=== PATIENT | female | born 2000 | race Caucasian/White ===

== ENCOUNTER 2022-03-23 08:35 | Outpatient (REF) | payer OTHER, SELFPAY ==
[2022-03-23 12:20] LABS: HBS Num1 0.09 mIU/mL (0-7.99); ~Hepatitis B Surface Antibody NONREACTIVE (Nonreactive)
[2022-03-23 12:21] LABS: Cholesterol 134 mg/dL; Glucose Fasting 92 mg/dL (60-99); HDL Cholesterol 60 mg/dL; LDL Cholesterol Calculated 54 mg/dl; Triglycerides 100 mg/dL
[2022-03-24 21:41] LABS: Rubella IgG Antibody <0.90 Index
[2022-03-28 13:57] LABS: TS Negative Control Passed; TS Panel A 3; TS Panel B 0; TS Positive Control Passed; TSpotTB Negative (Negative)
== END 2022-03-23 08:36 | disposition home or self-care (01) ==
LOC: HO.HMGCLDS 08:35
PROVIDERS: Visit Provider Internal Medicine
DX: Z00.00 Encounter for general adult medical examination without abnormal findings (principal); Z11.1 Encounter for screening for respiratory tuberculosis; Z01.84 Encounter for antibody response examination
CPT/HCPCS: 36415; 80061; 82947; 86481; 86706; 86735; 86762; 86765

== ENCOUNTER 2022-05-10 07:06 | Outpatient (REF) | payer OTHER, SELFPAY ==
[2022-05-10 12:09] LABS: HBc Num1 0.08 S/CO (0.00-0.79); HBsAGNum1 0.16 S/CO (0.00-0.99); Hepatitis B Core Antibody Nonreactive (Nonreactive); Hepatitis B Surface Antigen Negative (Negative); ~Hepatitis B Surface Antibody REACTIVE (Nonreactive)
== END 2022-05-10 07:07 | disposition home or self-care (01) ==
LOC: HO.HMGCLDS 07:06
PROVIDERS: PCP Internal Medicine; Visit Provider Internal Medicine
DX: Z01.84 Encounter for antibody response examination (principal); Z78.9 Other specified health status
CPT/HCPCS: 36415; 86704; 86706; 87340

== ENCOUNTER 2025-01-28 11:55 | Outpatient (REF) | payer OTHER, SELFPAY ==
--- OUTSIDE RECORDS SUMMARY | 2025-01-28 13:15 | XMS_ITS | Encounter Summary ---
Author Organization [facility] Address [address] [place] [phone] Phone Care Team Providers Care Election Judge Name Role Phone More Christina MD Primary Care Prov ider Encounter Details Date Type Department Care Team (Late st Contact Info) Description 11/22/2017 Conversion Encounter [facility] [address] [phone] More Almonte MD [address] [address] Social History Tobacco Use Types Packs/Day Years Used Date Smoking Tobacco: Never Comments:Never Comments Unknown Sex and Gender Information Value Date Recorded Sex Assigned at Not on file Legal Sex Female 12:18 PM EST Gender Identity Not on file Sexual Orientation Not on file documented as of this encounter Plan of Treatment Not on file documented as of this encounter Visit Diagnoses Not on filedocumented in this encounter Care Teams Election Judge Relationship Specialty Start Date End Date More Christina MD [address] [address] PCP - General 01/03/16 documented as of this encounter
--- OUTSIDE RECORDS SUMMARY | 2025-01-28 13:15 | XMS_ITS | Referral Summary ---
Author Organization [facility] Address [address] [place] [address] Care Team Providers Care Workforce Planner Name Role Phone Ashleigh Van MD Primary Care Provider Allergies No known active allergies Medications methylphenidate ER (Concerta) 18 mg tablet Take 1 tablet (18 mg total) by mouth every morning. 10 tablet 12/25/2024 3:51 PM EDT 12/25/2024 Active methylphenidate HCl (RITALIN) 20 mg tablet Take 1 tablet (20 mg total) by mouth 3 times a day as needed, as directed. 90 tablet 01/23/2025 6:11 PM EDT 12/31/2024 Active Immunizations Immunization Administration Dates Next Due Covid-19, Pfizer, mRNA, [place] valent, PF 30 mcg/0.3 mL dose (for ages 12 and older) 03/31/2022,01/17/2021 Hep B, Unspecified 03/31/2022 Hepatitis B adult (ENGERIX-B /RECOMBIVAX HB ADULT) vaccine 1 mL IM 03/22/2001,2000,2000 Influenza trivalent, PF MDCK (FLUCELVAX) vaccine 0.5 mL IM (for age 6 mo and older) 09/02/2024 Influenza, Injectable, Quadr ivalent, Preservative Free 07/20/2023,09/22/2022 Measles, Mumps, and Rubella Vaccine 06/28/2004,0 09/25/2001 Tetanus Toxoid, Reduced Diph theria Toxoid, and Acellular Pertussis Vaccine, Adsorbed 03/21/2022,03/07/2012 Varicella Virus Vaccine 03/07/2012,06/26/2001 Social History Tobacco Use Types Packs/Day Years Used Date Smoking Tobacco: Never Assessed Comments No Sex and Gender Information Value Date Recorded Sex Assigned at Female 07/12/2023 8:23 PM EDT Legal Sex Female 1:35 PM EDT Gender Identity Female 07/12/2023 8:23 PM EDT Sexual Orientation Not on file Last Filed Vital Signs Vital Sign Reading Time Taken Comments Blood Pressure 109/72 07/13/2023 10:18 AM EDT Pulse 78 07/13/2023 10:18 AM EDT Temperature 36.7 ??C (98.1 ??F) 07/13/2023 6:18 AM ED T Respiratory Rate 16 07/13/2023 10:18 AM EDT Oxygen Saturation 98% 07/13/2023 10:18 AM EDT Inhaled Oxygen Concentration - - Weight - - Height - - Body Mass Index - - Plan of Treatment Not on file Insurance [employer] Care Teams Workforce Planner Relationship Specialty Start Date End Date Ashleigh Van MD [address] [place], [place] [phone] PCP - General Internal Medicine 07/11/23
--- OUTSIDE RECORDS SUMMARY | 2025-01-28 13:15 | XMS_ITS | Clinical Summary ---
Author Organization [facility] Address [address] [place] [address] Care Team Providers Care Principal Programmer Name Role Phone Ashleigh Van MD Primary [...] Administration Dates Next Due Covid-19, Pfizer, mRNA, [place] valent, PF 30 mcg/0.3 mL dose (for [...] Mass Index - - Plan of Treatment Health Maintenance Due Date Last Done Comments HIV Screening 2000 Hepatitis C Screening 2000 Pap Smear 2000 HPV Vaccines (1 - 3-dose series) 2015 Chlamydia Screening 2016 COVID-19 Vaccine ( - 2023-2 5 season) 2024 03/31/2022, 01/17/2021 Alcohol/Substance Use Screening 09/24/2024 Depression Screening and Follow-Up 09/24/2024 Social Drivers of Health Debra ual Screening 09/24/2024 DTaP,Tdap,and Td Vaccines (8 - Td or Tdap) 03/21/2032 03/21/2022, 03/07/2012, 06/28/2004, Additional history exists RSV Vaccine (60+ years old a nd patients) (1 - 1-dose 75+ series) 2075 Pneumococcal Vaccine: Pediat hadley (0-5 Years) and At-Risk Patients (6-50 Years) Completed 09/25/2001, 03/22/2001, 2000, Additional history exists Varicella Vaccines Completed 03/07/2012, 06/26/2001 Hepatitis B Vaccines Completed 03/31/2022, 03/22/2001, 2000, Additional history exists [facility] Student Health-MMR Vaccines Completed 04/14/2022, 06/28/2004, 09/25/2001 Influenza Vaccine Completed 09/02/2024, , 09/22/2022, Additional history exists Insurance [employer] Care Teams Principal Programmer Relationship Specialty Start Date End Date Ashleigh Van MD [address] [place], [place] [phone] PCP - General Internal Medicine 07/11/23
--- OUTSIDE RECORDS SUMMARY | 2025-01-28 13:16 | XMS_ITS | Encounter Summary ---
Author Organization [facility] Address [address] [place] [address] Care Team Providers Care Back Feeder Plywood Layup Line Name Role Phone Ashleigh Van MD Primary Care Provider Encounter Details Date Type Department Care Team (Late st Contact Info) Description 04/27/2022 External Result Entry [facility] and [address] [address] System Engineer: Sondra Mayfield, RN [place], [place] Social History Tobacco Use Types Packs/Day Years Used Date Smoking Tobacco: Never Assessed Comments Unknown Sex and Gender Information Value Date Recorded Sex Assigned at Female 07/12/2023 8:23 PM EDT Legal Sex Female 1:35 PM EDT Gender Identity Female 07/12/2023 8:23 PM EDT Sexual Orientation Not on file documented as of this encounter Plan of Treatment Not on file documented as of this encounter Procedures * Due to [place] state law, this organization might not be sharing negative HIV tests. Procedure Name Priority Date/Time Associated Diagnosis Comments HEP B SURFACE ANTIBODY, OUTSIDE LAB Routine 05/10/2022 HEP B CORE TOTAL ANTIBODY, OUTSIDE LAB Routine 05/10/2022 HEPATITIS B SURFACE ANTIGEN W/CONFIRMATION, OUTSIDE LAB Routine 05/10/2022 MUMPS ANTIBODY IGG, OUTSIDE LAB Routine 03/23/2022 MEASLES ANTIBODY (IGG), OUTSIDE LAB Routine 03/23/2022 HEP B SURFACE ANTIBODY, OUTSIDE LAB Routine 03/23/2022 RUBELLA ANTIBODY, IGG, OUTSIDE LAB Routine 03/23/2022 T-SPOT, OUTSIDE LAB Routine 03/23/2022 documented in this encounter Results * Due to [place] state law, this organization might not be sharing negative HIV tests. * Hep B Surface Antibody, Outside Lab (05/10/2022) Hep B Surface Antibody pos Blood 05/10/2022 us Unknown Provider LAB BLOOD ORDERABLES Final R esult * Hep B Core Total Antibody, Outside Lab (05/10/2022) Hep B Core Total AB neg Blood 05/10/2022 us Unknown Provider LAB BLOOD ORDERABLES Final R esult * Hepatitis B Surface Antigen w/Confirmation, Outside Lab (05/10/2022) Hepatitis B Surface Antigen neg Blood Structure of peripheral vein / Unknown 05/10/2022 us Unknown Provider LAB BLOOD ORDERABLES Final R esult * Hep B Surface Antibody, Outside Lab (03/23/2022) Hep B Surface Antibody neg Blood 03/23/2022 us Unknown Provider LAB BLOOD ORDERABLES Final R esult * Rubella Antibody, IgG, Outside Lab (03/23/2022) Rubella Antibody, IgG neg Blood Structure of peripheral vein / Unknown 03/23/2022 us Unknown Provider LAB BLOOD ORDERABLES Final R esult * Mumps Antibody IgG, Outside Lab (03/23/2022) Mumps Antibody IgG pos Blood 03/23/2022 us Unknown Provider LAB BLOOD ORDERABLES Final R esult * Measles Antibody (IGG), Outside Lab (03/23/2022) Measles Antibody (IgG) pos Blood 03/23/2022 us Unknown Provider MD LAB BLOOD ORDERABLES Final R esult * T-Spot, Outside Lab (03/23/2022) T-Spot (TB Skin Test) neg Blood Structure of peripheral vein / Unknown 03/23/2022 us Unknown Provider LAB BLOOD ORDERABLES Final R esult documented in this encounter Visit Diagnoses Not on filedocumented in this encounter Additional Health Concerns Infection Onset Date Last Indicated Resolved Time R/O Respiratory Virus Infection 07/12/2023 07/12/2023 9:36 PM EDT R/O Influenza 07/12/2023 07/12/2023 07/12/2023 9:3 6 PM EDT COVID-19 - Suspected infection 07/12/2023 07/12/2023 07/12/2023 9:36 PM EDT documented as of this encounter Care Teams Back Feeder Plywood Layup Line Relationship Specialty Start Date End Date Ashleigh Van MD [address] [place] [address] PCP - General Internal Medicine 07/11/23 documented as of this encounter
--- OUTSIDE RECORDS SUMMARY | 2025-01-28 13:16 | XMS_ITS | Clinical Summary ---
Author Organization [facility] Address [address] [place] [phone] Phone Care Team Providers Care Shoe Associate Name Role Phone More Christina MD Primary Care Prov ider Allergies No known active allergies Medications No known medications Active Problems Problem Noted Date Diagnosed Date Allergic rhinitis 04/16/2018 Abnormal vision 04/16/2018 Overview (04/16/2018): SPOT vision fail bilat anisometropia; referred to opthal of pt's choice Parent refuses immunizations 04/16/2018 Overview (04/16/2018): Per Dr. Gastelum; pt's mother is a PCP physician and hx refusing Gardasil, Hep A and Menactra Resolved Problems Problem Noted Date Diagnosed Date Resolved Date Environmental allergies 04/16/201803/25 Immunizations Immunization Administration Dates Next Due DTaP 06/28/2004, 2,2000, 001,2000 HPV Vaccine 9 Valent 04/16/2018(Deferred: Parent al decision) Hep A, ped/adol 04/16/2018(Deferred: Parental de cision) Hep B, ped/adol 03/22/2001,2000,2000 Hib (PRP-T) 09/25/2001, 1,2000, 000 IPV 06/28/2004, 2,2000, 000 Influenza, intranasal, trivalent 07/11/2007,11/0 10/2005 MMR 06/28/2004,09/25/2001 Meningococcal Conj (Menactra) MCV4P 04/16/2018(D eferred: Parental decision) Pneumococcal Conjugate 09/25/2001,2000,2000, 001 Tdap 03/07/2012 Varicella 03/07/2012,06/26/2001 Family History Relation Name Status Comments Father Tuberculosis No te: PPD+, neg cxr Maternal Grandmother Migrain e Other 1 Unspecified Rel ation: Hodgkin's disease (clinical) Other 2 Unspecified Rel ation: Leukemia Other 3 Unspecified Rel ation: Unspecified Relation: Hodgkin's disease (clinical), Leukemia Paternal Grandmother Diabete s mellitus, Hypertensive disorder Social History Tobacco Use Types Packs/Day Years Used Date Smoking Tobacco: Never Comments:Never Comments Unknown Sex and Gender Information Value Date Recorded Sex Assigned at Not on file Legal Sex Female 12:18 PM EST Gender Identity Not on file Sexual Orientation Not on file Last Filed Vital Signs Vital Sign Reading Time Taken Comments Blood Pressure 100/67 04/16/2018 9:48 AM EDT Pulse 91 04/16/2018 9:48 AM EDT Temperature 36.8 ??C (98.3 ??F) 04/16/2018 9:48 AM ED T Respiratory Rate - - Oxygen Saturation - - Inhaled Oxygen Concentration - - Weight 58.5 kg (129 lb) 04/16/2018 9:48 AM EDT Height 172.7 cm (5' 8 ) 04/16/2018 9:48 AM EDT Body Mass Index 19.61 04/16/2018 9:48 AM EDT Plan of Treatment Health Maintenance Due Date Last Done Comments HPV Vaccines (1 - 3-dose series) 2015 DTaP,Tdap,and Td Vaccines (7 - Td or Tdap) 03/07/2022 03/07/2012, 06/28/2004, 12/30/2001, Additional history exists Influenza Vaccines (#1) 2024 07/11/2007, 07/26 COVID-19 Vaccine ( - season) 2024 Hepatitis B Vaccines Completed 03/22/2001, 2000, 2000 HIB Vaccines Completed 09/25/2001, 12/2000, 2000, Additional history exists Pneumococcal Vaccine Completed 09/25/2001, 03/22/2001, 2000, Additional history exists IPV Vaccines Completed 06/28/2004, 04/2002, 2000, Additional history exists MMR Vaccines Completed 06/28/2004, 09/25/2001 Varicella Vaccines Completed 03/07/2012, 06/26/2001 Hepatitis A Vaccines Aged Out No long er eligible based on patient's age to complete this topic Men B Vaccine Aged Out No longer elig ible based on patient's age to complete this topic Meningococcal Vaccine Aged Out No deepika vesna eligible based on patient's age to complete this topic Procedures * Due to [facility] law, this organization might not be sharing sensitive test results. Procedure Name Priority Date/Time Associated Diagnosis Comments CHLAMYDIA TRACHOMATIS, AMPLIFIED Routine 04/16/2018 1:08 PM EDT Encounter for well child visit with abnormal findings from Last 3 Months or Most Recently Relevant to Health Maintenance Results * Due to [facility] law, this organization might not be sharing sensitive test results. * Chlamydia trachomatis, Amplified (04/16/2018 1:08 PM EDT) Chlamydia Trachomatis, Amplified NEGATIVE NEGATIVE [facility] Comment:Administratively cor rected per TONY ticket??[id number] 04/16/2018 1:08 PM EDT 04/16/2018 2:51 PM EDT Narrative [facility] - 04/17/2018 1:50 PM EDT ML - [facility] [address] [facility] [id number] us [place] FAMILY WORKER LAB BLOOD ORDERABLES Final Resul t [facility] from Last 3 Months or Most Recently Relevant to Health Maintenance Insurance [employer] PPO Care Teams Shoe Associate Relationship Specialty Start Date End Date More Christina MD [address] [place] [address] PCP - General 01/03/16
[2025-01-30 22:47] LABS: TS Negative Control Passed; TS Panel A 0; TS Panel B 1; TS Positive Control Passed; TSpotTB Negative (Negative)
== END 2025-01-28 11:56 | disposition home or self-care (01) ==
LOC: HO.HMGCLDS 11:55
PROVIDERS: PCP Internal Medicine; Visit Provider Internal Medicine
DX: Z00.00 Encounter for general adult medical examination without abnormal findings (principal)
CPT/HCPCS: 36415; 86481

== ENCOUNTER 2025-03-09 10:03 | Outpatient (REF) | payer OTHER, SELFPAY ==
--- OUTSIDE RECORDS SUMMARY | 2025-03-09 11:09 | XMS_ITS | Encounter Summary ---
Author Organization [facility] Address [address] [place] [phone] Phone Care Team Providers Care Activities Counselor Name Role Phone More Christina MD Primary Care Prov ider Encounter Details Date Type Department Care Team (Late st Contact Info) Description 11/22/2017 Conversion Encounter [facility] [address] [phone] More Almonte MD [address] [address] Social History Tobacco Use Types Packs/Day Years [...] on filedocumented in this encounter Care Teams Activities Counselor Relationship Specialty Start Date End Date More Christina MD [address] [address] PCP - General 01/03/16 documented as of this encounter
[2025-03-09 11:47] LABS: Amphetamine Screen Urine Not Detected (Not Detect); Barbiturates, Urine Not Detected (Not Detect); Benzodiazepines Screen Urine Not Detected (Not Detect); Buprenorphine Scr Not Detected (Not Detect); Cannabinoid Screen Urine Not Detected (Not Detect); Cocaine Screen Urine Not Detected (Not Detect); Fentanyl, urine Not Detected (Not Detect); Methadone Screen, Urine Not Detected (Not Detect); Opiate Screen Urine Not Detected (Not Detect); Oxycodone Screen Urine Not Detected (Not Detect); Phencyclidine Screen Urine Not Detected (Not Detect)
== END 2025-03-09 10:04 | disposition home or self-care (01) ==
LOC: HO.LAB 10:03
PROVIDERS: Internal Medicine; PCP Internal Medicine; Visit Provider Internal Medicine
DX: Z00.00 Encounter for general adult medical examination without abnormal findings (principal)
CPT/HCPCS: 80307

== ENCOUNTER 2025-05-04 07:00 | Outpatient (REF) | payer OTHER, SELFPAY ==
--- OUTSIDE RECORDS SUMMARY | 2025-05-04 07:02 | XMS_ITS | Referral Summary ---
Author Organization [facility] Address [address] [place] [address] Care Team Providers Care Route Jumper Name Role Phone Ashleigh Van MD Primary Care Provider Encounters Date Type Department Care Team Description 02/02/2025 External Result Entry [facility] [address] [place] [phone] Travel Med Surg Rn: Sondra Mayfield RN from Last 3 Months Allergies No known active allergies Medications methylphenidate [...] Administration Dates Next Due Covid-19, Pfizer, mRNA, [place] valent, PF 30 mcg/0.3 mL dose (for [...] 78 07/13/2023 10:18 AM EDT Temperature 36.7 C (98.1 F) 07/13/2023 6:18 AM EDT Respiratory Rate 16 07/13/2023 10:18 AM EDT Oxygen Saturation 98% 07/13/2023 10:18 AM EDT Inhaled Oxygen Concentration - - Weight - - Height - - Body Mass Index - - Plan of Treatment Upcoming Encounters Date Type Department Care Team (Late st Contact Info) Description 12/21/2025 8:45 AM EDT Office Visit [facility] [address] [place] [phone] Koki Madera DO [address] [place] [phone] Insurance [employer] Care Teams Route Jumper Relationship Specialty Start Date End Date Ashleigh Van MD [facility] [place] [address] PCP - General Internal Medicine 07/11/23
[2025-05-04 10:45] LABS: ~HepC Num1 0.09 S/CO (0.00-0.79); ~Hepatitis C Antibody Nonreactive (Nonreactive)
== END 2025-05-04 07:01 | disposition home or self-care (01) ==
LOC: HO.HMGCLDS 07:00
PROVIDERS: PCP Internal Medicine; Visit Provider Internal Medicine
DX: Z00.00 Encounter for general adult medical examination without abnormal findings (principal); Z11.59 Encounter for screening for other viral diseases
CPT/HCPCS: 36415; 86803